=== PATIENT | male | born 2000 | race Caucasian/White ===

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

== ENCOUNTER 2021-03-15 01:03 | Emergency (ER) | payer OTHER ==
[~2021-03-15] VITALS: Ht 170.2 cm; Wt 131.5 kg
[2021-03-15 01:10] VITALS: BP_SYST 150
--- NOTE | 2021-03-15 01:10 | NUR ---
Patient triaged and placed in waiting room. VSS and patient appears in no acute distress at this time. Accompanied by mother, awaiting available bed, and MD notified of need for MSE.
--- NOTE | 2021-03-15 02:00 | NUR ---
ER examining patient in the lobby.
[2021-03-15] MEDS ORDERED: DIPHENHYDRAMINE HCL 25 MG CAPSULE PO ONE (02:15)
[2021-03-15 03:00] VITALS: BP_SYST 146
--- NOTE | 2021-03-15 03:24 | NUR ---
Patient given verbal discharge instructions by Dr Howell and verbalizes understanding. ER MD discussed with patient the results and treatment provided. Patient in stable condition. ID arm band removed. no Rx of given. Patient educated on pain management and to follow up with PMD. Pain Scale 0/1. Opportunity for questions provided and answered. Medication side effect fact sheet provided.
== END 2021-03-15 03:00 | disposition home or self-care (01) ==
LOC: SED 01:03
DX: R07.89 Other chest pain (principal)
CPT/HCPCS: 71045; 93005; 99283; Q0163

== ENCOUNTER 2021-03-28 23:53 | Emergency (ER) | payer OTHER ==
[~2021-03-28] VITALS: Ht 170.2 cm; Wt 131.5 kg
[2021-03-29] VITALS: BP_SYST 128
[2021-03-29] MEDS ORDERED: DIAZ2TAB3 PO (02:53)
[2021-03-29 03:06] VITALS: BP_SYST 110
== END 2021-03-29 03:06 | disposition home or self-care (01) ==
LOC: SED 23:53
DX: F41.1 Generalized anxiety disorder (principal)
CPT/HCPCS: 71045; 93005; 99283

== ENCOUNTER 2021-09-02 00:30 | Emergency (ER) | payer OTHER ==
[~2021-09-02] VITALS: Ht 170.2 cm; Wt 131.5 kg
[~2021-09-02 00:30] MED LIST: DIAZ2TAB3 PO
[2021-09-02 00:35] VITALS: BP_SYST 142
--- NOTE | 2021-09-02 00:35 | NUR ---
Patient triaged and placed in waiting room. VSS and patient appears in no acute distress at this time. Awaiting available bed, and MD notified of need for MSE.
--- NOTE | 2021-09-02 00:40 | NUR ---
ER Dr.DELA ZHU examining patient in the triage room
[2021-09-02 01:43] LABS: BASOPHILS % (AUTO) 0.4 % (0.0-2.0); EOSINOPHILS # (AUTO) 0.1 K/uL (0.0-0.4); EOSINOPHILS % (AUTO) 1.1 % (0.0-4.0); HEMATOCRIT 43.8 % (36-54); HEMOGLOBIN 15.3 g/dL (14.0-18.0); LYMPHOCYTES # (AUTO) 1.6 K/uL (1.0-5.5); LYMPHOCYTES % (AUTO) 16.3 % (20.5-51.5); MEAN CORPUSCULAR HEMOGLOBIN 29 pg (27-31); MEAN CORPUSCULAR HGB CONC 35 % (32-36); MEAN CORPUSCULAR VOLUME 83 fL (79.0-98.0); MONOCYTES # (AUTO) 0.5 K/uL (0.0-1.0); MONOCYTES % (AUTO) 4.8 % (1.7-9.3); NEUTROPHILS # (AUTO) 7.7 K/uL (1.8-7.7); NEUTROPHILS % (AUTO) 77.4 % (40.0-70.0); PLATELET COUNT (AUTO) 271 K/uL (130-430); RED CELL DISTRIBUTION WIDTH 13.6 % (9.0-15.0)
[2021-09-02 01:45] LABS: ANION GAP 7 (5-15); CALCIUM 9.3 mg/dL (8.4-11.0); CHLORIDE 103 mmol/L (98-107); CREATININE 1.11 mg/dL (0.55-1.30); GLUCOSE 112 mg/dL (70-99); POTASSIUM 3.6 mmol/L (3.5-5.1); SODIUM SERUM 139 mmol/L (136-145); UREA NITROGEN, BLOOD 11 mg/dL (8-21)
[2021-09-02 01:58] LABS: ALANINE AMINOTRANSFERASE 40 U/L (12-78); ALBUMIN 3.7 g/dL (3.4-4.8); ASPARTATE AMINOTRANSFERASE 29 U/L (10-37); TOTAL BILIRUBIN 1.2 mg/dL (0.0-1.0)
[2021-09-02 02:02] LABS: GFR AFRICAN AMERICAN 109 mL/min (>90)
[2021-09-02] MEDS ORDERED: VIS25 PO (02:07)
--- NOTE | 2021-09-02 02:29 | NUR ---
Patient given written and verbal discharge instructions and verbalizes understanding. ER MD discussed with patient the results and treatment provided. Patient in stable condition. ID arm band removed. IV catheter removed intact and dressing applied, no active bleeding. Rx of ATARAX given. Patient educated on pain management and to follow up with PMD. Pain Scale . Opportunity for questions provided and answered. Medication side effect fact sheet provided.
== END 2021-09-02 02:29 | disposition home or self-care (01) ==
LOC: SED 00:30
DX: R00.2 Palpitations (principal); Z79.899 Other long term (current) drug therapy; Z20.822 Contact with and (suspected) exposure to COVID-19
CPT/HCPCS: 36415; 71046-TC; 80053; 84443; 84484; 85025; 85379; 93005; 99285